=== PATIENT | female | born 1995 | race Two or more races ===

== ENCOUNTER 2017-03-03 17:03 | Emergency (ER) | payer MEDICAID, SELFPAY ==
[~2017-03-03] VITALS: Ht 162.6 cm; Wt 65.9 kg
[2017-03-03] MEDS ORDERED: DAYQUIL PO (17:17)
[2017-03-03] MEDS ORDERED: NEXP1IMP SC (17:17)
[2017-03-03] MEDS ORDERED: AUGMENTIN 875 MG TAB As Ordered ONE (19:07)
[2017-03-03] MEDS ORDERED: VENTAER IN (19:59)
[2017-03-03] MEDS ORDERED: AUGM875T28 PO (19:59)
[2017-03-03] MEDS ORDERED: AUGMENTIN 875 MG TAB PO ONE (20:00)
[2017-03-03 20:08] VITALS: BP 118/52
== END 2017-03-03 20:09 | disposition home or self-care (01) ==
LOC: M ED 17:03
DX: J02.9 Acute pharyngitis, unspecified (principal); J45.909 Unspecified asthma, uncomplicated; Z79.3 Long term (current) use of hormonal contraceptives